=== PATIENT | male | born 1950 | race Caucasian/White ===

== ENCOUNTER 2017-05-11 12:35 | Inpatient (IN) | payer MEDICARE, OTHER ==
[~2017-05-11 12:35] MED LIST: LACTATED RINGERS 1,000 ML IV ONE
[2017-05-11] MEDS ORDERED: PANTOPRAZOLE 40 MG VIAL IVP STA (12:53)
[2017-05-11] MEDS ORDERED: SODIUM CHLORIDE 0.9% 1,000 ML IV ONE (12:53)
[2017-05-11] MEDS ORDERED: PANTOPRAZOLE 40 MG VIAL ONE (12:58)
--- NOTE | 2017-05-11 12:58 | ED Physician Documentation ---
PD HPI ABD PAIN - Stated complaint Stated Complaint: VOMITING BLOOD - Chief complaint Chief Complaint: Abd Pain - History obtained from History obtained from: Patient, Family () - History of Present Illness Timing - onset: Other (66-year-old gentleman with history of esophageal spasm had his typical esophageal spasm last night but starting an hour ago started having coffee-ground emesis and melena not associated with significant abdominal or residual chest pain. He denies shortness of breath. He drinks he says every other day, a few drinks, denies NSAID use, no anticoagulated. No history of ulcer. He does have a history of extensive abdominal surgeries. He does not take any PPI, it is only home medication is lisinopril. He denies weakness or dizziness.) Review of Systems Ten Systems: 10 systems reviewed and negative Constitutional: denies: Fever, Chills, Fatigue Cardiac: denies: Palpitations, Pedal edema, Calf pain Respiratory: denies: Dyspnea, Cough, Hemoptysis, Wheezing GI: reports: Nausea, Vomiting, Hematemesis, Bloody / black stool. denies: Abdominal Pain PD PAST MEDICAL HISTORY - Past Medical History Cardiovascular: Congestive heart failure, Murmur Respiratory: None Neuro: None Endocrine/Autoimmune: None GI: Diverticulitis : None HEENT: None Psych: None Musculoskeletal: Other Derm: None - Past Surgical History Past Surgical History: Yes General: Gastric surgery, Hiatal hernia repair, Colonoscopy - Present Medications Home Medications: Ambulatory Orders Medication Instructions Recorded Confirmed Nitroglycerin [Nitrostat] 0.4 mg SL Q5MIN 04/20/14 05/11/17 Lisinopril/Hydrochlorothiazide 1 tab PO DAILY 05/11/17 05/11/17 [Lisinopril-Hctz 20-25 mg Tab] - Allergies Allergies/Adverse Reactions: Allergies Allergy/AdvReac Type Severity Reaction Status Date / Time No Known Drug Allergies Allergy Verified 05/11/17 12:45 - Social History Does the pt smoke?: No Smoking Status: Never smoker Does the pt drink ETOH?: Yes - Family History Family history: reports: Non contributory - Immunizations Immunizations are current?: No Immunizations: TDAP >10years/unknown - POLST Patient has POLST: No PD ED PE NORMAL - Vitals Vital signs reviewed: Yes - General General: Alert and oriented X 3, Other (coffee-ground emesis at bedside) - HEENT HEENT: PERRL, EOMI - Neck Neck: Supple, no meningeal sign, No bony TTP - Cardiac Cardiac: No murmur, Other (tachycardic) - Respiratory Respiratory: No respiratory distress, Clear bilaterally - Abdomen Abdomen: Normal bowel sounds, Soft, Non tender, Other (well-healed surgical scars) - Back Back: No CVA TTP, No spinal TTP - Derm Derm: Normal color, Warm and dry - Extremities Extremities: No edema, No calf tenderness / cord - Neuro Neuro: Alert and oriented X 3, Normal speech - Psych Psych: Normal mood, Normal affect Results - Vitals Vitals: Vital Signs - 24 hr 05/11/17 05/11/17 12:42 13:07 Temperature 36.9 C Heart Rate 113 H 96 Respiratory 16 18 Rate Blood Pressure 140/89 H 137/84 H O2 Saturation 100 97 Oxygen O2 Source Room air - EKG (time done) 1301 Rate: Rate (enter#) (103) Rhythm: Sinus tachycardia [place]: Normal Intervals: Normal [place] QRS: Normal Ischemia: Normal ST segments Computer interpretation: Agree with computer - Labs Labs: Laboratory Tests 05/11/17 05/11/17 05/11/17 12:45 12:45 12:45 WBC 13.1 H RBC 3.95 L Hgb 12.0 L Hct 35.9 L MCV 90.8 MCH 30.5 MCHC 33.5 RDW 13.6 Plt Count 206 MPV 8.7 Neut # 9.6 H Lymph # 2.3 [place] # 1.0 Eos # 0.1 Baso # 0.0 Absolute Nucleated RBC 0.00 Nucleated RBCs 0.0 PT 13.3 H INR 1.2 APTT 25.9 Sodium 139 Potassium 4.3 Chloride 105 Carbon Dioxide 22 Anion Gap 12.0 BUN 50 H Creatinine 0.8 Estimated GFR (MDRD) 97 Glucose 217 H Calcium 8.3 L Total Bilirubin 1.8 H AST 28 ALT 33 Alkaline Phosphatase 53 Troponin I Total Protein 6.8 Albumin 3.8 Globulin 3.0 Albumin/Globulin Ratio 1.3 Lipase 26 Ethyl Alcohol < 5.0 Blood Type Antibody Screen Crossmatch IS Only 05/11/17 05/11/17 12:45 12:45 WBC RBC Hgb Hct MCV MCH MCHC RDW Plt Count MPV Neut # Lymph # [place] # Eos # Baso # Absolute Nucleated RBC Nucleated RBCs PT INR APTT Sodium Potassium Chloride Carbon Dioxide Anion Gap BUN Creatinine Estimated GFR (MDRD) Glucose Calcium Total Bilirubin AST ALT Alkaline Phosphatase Troponin I < 0.04 Total Protein Albumin Globulin Albumin/Globulin Ratio Lipase Ethyl Alcohol Blood Type O POSITIVE Antibody Screen NEGATIVE Crossmatch IS Only See Detail - Rads (name of study) 2v chest Radiology: EMP read contemporaneously (NAD) PD MEDICAL DECISION MAKING - ED course ED course: This is a 66-year-old gentleman with potentially large upper GI bleed, he was attended to immediately and large-bore IV access was placed, 16 in the right a.c., and 18 in the left a.c. He was administered IV Protonix. This was preceded by esophageal spasms a Boerhaave's is considered, we'll get a chest x- ray to screen. Blood was readied. His H&H is reassuring. I spoke with Dr. Green for consultation, the surgeon at 1330, and Dr. Shaver, the hospitalist for admission at 1335. Departure - Departure Disposition: 66 [facility] DC/Xfer Clinical Impression: Upper GI hemorrhage Condition: Serious
[2017-05-11 13:04] LABS: BASOPHILS % (AUTO) 0.3 %; EOSINOPHILS # (AUTO) 0.1 10^3/uL (0.0-0.7); EOSINOPHILS % (AUTO) 0.5 %; HCT - HEMATOCRIT 35.9 % (42.0-52.0); LYMPHOCYTES # (AUTO) 2.3 10^3/uL (1.5-3.5); LYMPHOCYTES % (AUTO) 17.9 %; MEAN CORPUSCULAR HEMOGLOBIN 30.5 pg (27.0-31.0); MEAN CORPUSCULAR HGB CONC 33.5 g/dL (32.0-36.0); MEAN CORPUSCULAR VOLUME 90.8 fL (80.0-94.0); MEAN PLATELET VOLUME 8.7 fL (7.4-11.4); MONOCYTES % (AUTO) 7.8 %; NEUTROPHILS # (AUTO) 9.6 10^3/uL (1.5-6.6); NEUTROPHILS % (AUTO) 73.5 %; RED BLOOD COUNT 3.95 10^6/uL (4.70-6.10); RED CELL DISTRIBUTION WIDTH 13.6 % (12.0-15.0); UNCORRECTED WHITE BLOOD COUNT 13.1 x10^3/uL; WHITE BLOOD COUNT 13.1 x10^3/uL (4.8-10.8)
[2017-05-11 13:09] LABS: INR 1.2 (0.8-1.2); PT - PROTHROMBIN TIME 13.3 secs (9.9-12.6)
[2017-05-11 13:14] LABS: ALBUMIN/GLOBULIN RATIO 1.3 (1.0-2.2); BILIRUBIN,TOTAL 1.8 mg/dL (0.2-1.0); BUN - BLOOD UREA NITROGEN 50 mg/dL (6-20); CALCIUM 8.3 mg/dL (8.5-10.3); CARBON DIOXIDE - CO2 22 mmol/L (21-32); CHLORIDE 105 mmol/L (101-111); CREATININE 0.8 mg/dL (0.6-1.2); GFR - MDRD 97 (>89); GLUCOSE 217 mg/dL (70-100); LIPASE 26 U/L (22-51); POTASSIUM 4.3 mmol/L (3.5-5.0); SODIUM 139 mmol/L (135-145); TOTAL PROTEIN 6.8 g/dL (6.7-8.2)
[2017-05-11 13:17] LABS: PARTIAL THROMBOPLASTIN TIME 25.9 secs (24.9-33.3)
[2017-05-11] MEDS ORDERED: METOCLOPRAMIDE 10 MG/2 ML VIAL IVP STA (13:23)
[2017-05-11] MEDS ORDERED: METOCLOPRAMIDE 10 MG/2 ML VIAL ONE (13:24)
[2017-05-11] MEDS ORDERED: diphenhydrAMINE INJ 50 MG/ML VIAL IVP STA (13:50)
[2017-05-11] MEDS ORDERED: SODIUM CHLORIDE FLUSH 0.9% 10 ML SYRINGE IVP PRN (13:51)
[2017-05-11] MEDS ORDERED: diphenhydrAMINE INJ 50 MG/ML VIAL ONE (13:52)
--- NOTE | 2017-05-11 14:10 | XRAY Preliminary Report ---
Exam: XR Chest 2 View PA/LAT IMPRESSION: No acute intrathoracic plain film abnormality. [facility] SITE ID: [id number]
--- NOTE | 2017-05-11 14:12 | XRAY Report ---
EXAM: CHEST RADIOGRAPHY EXAM DATE: 05/11/2017 01:47 PM. CLINICAL HISTORY: Hematemesis. COMPARISON: 01/28/2015. TECHNIQUE: 2 views. FINDINGS: Lungs/Pleura: No focal opacities evident. No pleural effusion. No pneumothorax. Normal volumes. Mediastinum: Heart and mediastinal contours are unremarkable. Other: There is right humerus internal fixation hardware. No acute bony abnormalities are seen. IMPRESSION: No acute intrathoracic plain film abnormality. [facility] Referring Provider Line: [phone] SITE ID: [id number]
[2017-05-11] MEDS ORDERED: PANTOPRAZOLE 40 MG VIAL IVP SCH (16:00)
[2017-05-11] MEDS: SODIUM CHLORIDE FLUSH 0.9% 10 ML SYRINGE IVP SCH ×2 (17:12→17:19)
[2017-05-11] MEDS ORDERED: ONDANSETRON 4 MG/2 ML VIAL IVP PRN (17:14)
[2017-05-11] MEDS: SODIUM CHLORIDE 0.9% 1,000 ML IV SCH (17:19)
--- NOTE | 2017-05-11 18:10 | HISTORY & PHYSICAL EXAMINATION ---
DATE OF ADMISSION: 05/11/2017 PRIMARY CARE PHYSICIAN: KATHERIN Grier. CHIEF COMPLAINT: He developed coffee ground emesis and dark black stool last night at the same time. HISTORY OF PRESENT ILLNESS: This is a 66-year-old gentleman who has enjoyed relatively good health until now just with hypertension and history of what he describes as esophageal spasm, who was feeling well until yesterday when he developed a pretty much at the same time black coffee ground emesis. The says it was approximately a cup and also had black dark stool. He comes to the emergency room today without having had an additional coffee-ground emesis or black stool. However, with a hemoglobin and hematocrit of 12 and 36 and a white count of 13.1, platelets 206,000. He does not had any prior history of GI bleed. He does not have a history of bleeding diathesis. He is not on an antiplatelet agents, nor anticoagulants, does not take aspirin, does not take NSAIDs, is also not on any PPI or H2 radha, does not take any herbals. He does drink alcohol, but says this is 1-2 glasses of wine a night. To the ER, he said that it was a glass or 2 of wine every other night. Regarding his esophageal spasm he describes this as food getting stuck part way down, it only happens a couple times a year and when it does happen, it is uncomfortable all the way down. He says that if you gave me some steak right now I could make it happen. He denies that he has ever been diagnosed with eosinophilic esophagitis. He has never had a manometry. He normally has a formed brown bowel movement on pretty much daily basis. With blood loss he denies any shortness of breath, no new chest pain, possibly a little bit diaphoretic and a little bit lightheaded. His INR is 1.2. Platelets 206,000. He had not yet had orthostatics checked before I came to the ER, we did them down there and he had a significant drop from systolic of 131/67 to a systolic of 102 with the development of lightheadedness and he had to sit down, also his heart rate went from 95-115. He has already received 1 liter of normal saline in the emergency room, he was also seen already by Dr. Green of surgery for consideration of EGD and colonoscopy. I have not yet spoken with Dr. Green. He reports that he had a colonoscopy approximately a year ago which he says was completely normal. PAST SURGICAL HISTORY: 1. Ventral hernia repair which has required several surgeries including a colon resection. 2. Right arm fracture 2 to 3 years ago. PAST MEDICAL HISTORY: 1. Hypertension for which he is on lisinopril. 2. History of esophageal spasm. MEDICATIONS AT HOME: 1. Lisinopril thiazide combination is 20:25. 2. He takes p.r.n. nitroglycerin, which I believe is due to his esophageal spasms. ALLERGIES: HE HAS WHAT HE REFERS TO ALLERGIES TO TYLENOL. THIS IS AN ADVERSE DRUG REACTION FORM OF NAUSEA AND VOMITING. SOCIAL HISTORY: He is retired from the [employer], he even spent some time living in [facility] [place] He is . His is with him. He has 2 children who are healthy. As above, he 1-2 drinks of wine per night. Does not smoke any illicit's and smoked years ago. FAMILY HISTORY: Parents well into their 90s. He denies any family history of heart disease, diabetes, cancer or any bleeding diathesis. REVIEW OF SYSTEMS: He denies any unintentional weight gain or weight loss. No fevers, night sweats, lymphadenopathy, no new activity intolerance other than that since yesterday with blood loss. HEAD, EARS, EYES. NOSE AND, THROAT: No vision changes. No trouble chewing or swallowing. No neck stiffness. CARDIOVASCULAR: No chest pain or pressure suggestive of ischemia. No palpitations. No edema. No near syncope only as that described above lightheadedness with the blood loss. RESPIRATORY: No cough, wheezing, or shortness of breath. GASTROINTESTINAL: As per the HPI. GENITOURINARY: Denies urinary frequency, dysuria, or hesitancy. MUSCULOSKELETAL: No complaints of joint pain or swelling. No falls. SKIN: No changes. NEUROLOGIC: No weakness, paresthesias, or discoordination. No confusion or memory loss. PSYCHIATRIC None. ENDOCRINE: No polyuria, polydipsia. No heat or cold intolerance. HEMATOLOGIC: No easy bruising or bleeding, other than the GI bleed described above. PHYSICAL EXAMINATION: GENERAL: In the emergency room, orthostatics are as described above with a drop in his systolic from 131 to 102 in the upright position and increase in his heart rate upon standing gradually from 95 to 115, may have gone further, but I was not present in the room for the rest of it. He is a very pleasant gentleman who appears stated age 66. His is at the bedside. He is lying in bed on the stretcher in no acute distress and participates in the interview. On standing for orthostatic he definitely was started to feel lightheaded and uncomfortable and was sat back down. HEAD, EYES, EARS, NOSE AND THROAT: He has a normal distribution of hair. His sclerae are anicteric. Pupils are approximately 3-4 mm with react to light, and extraocular movements intact. Oral mucosa is moist. He has his own dentition, which is adequate. NECK: Supple. Carotids are +2 with no extra sounds. No bruit. He was set up for a chest exam. He has no spinal tenderness or CVA tenderness. CHEST: Clear to auscultation with unlabored respirations. HEART: Regular S1, S2 with no appreciable extra sounds, periphery is warm and dry. There is no edema. ABDOMEN: Notable for old midline scar and appears to be almost an umbilical hernia from old ventral hernia repair. He has active bowel sounds. His abdomen is nontender. I think I do feel the liver edge on deep inspiration, which is nontender. EXTREMITIES: As above. Strength is grossly equal and no edema. Reflexes and strength were not assessed. DIAGNOSTICS on admission. DIAGNOSTIC STUDIES: White count 13.1, hemoglobin 12.0, hematocrit 35.9, platelets 260,000 and INR is 1.2. Sodium 139, potassium 4.3, chloride 105, bicarbonate 32, BUN 50, creatinine 0.8, glucose 217, Total bilirubin is 1.8. AST and ALT are 28 and 33, respectively. Albumin is 3.8. Alcohol level is 5. EKG was normal sinus tachycardia at approximately 100 with no ischemic changes. Normal axis. echo 2013 EF 70% Grade II diastolic dysfunction In looking for old blood work for comparison there are none in the system. ASSESSMENT AND PLAN: 1. Acute gastrointestinal bleed, suspicious for upper bleed, especially given his elevated BUN and coffee ground emesis. He actually has hemodynamic instability with orthostasis as noted. In ED he received 2 L NS and Medsurg RN indicates patient up in room and no longer orthostatic . He still has good room on his hemoglobin thus far, we will have serial hematocrits every 6 hours. He also will check orthostatics with the continued normal saline volume resuscitation. Will continue that at 100 mL/hour. He has blood that has been typed and screened. I will make sure there is a cross available for 3 at all times in case this becomes a more brisk bleed. He has a large bore IV available , he will be on clears tonight, n.p.o. after midnight for possible EGD in the morning by Dr. Green who has not yet had a formal consultation put in the computer. Patient indictes surgeon already spoke with him. He will continue IV Protonix twice daily. We will hold off on his lisinopril thiazide combination. 2. Hypertension. As above he is orthostatic. With blood loss we are holding off on his antihypertensives. 3. Venous thromboembolism prophylaxis. He will be on SCDs. We will not use any pharmacologic agent at this time. 4. CODE STATUS: HE IS A FULL CODE. 5. Slightly elevated total bilirubin. I will fractionate this, is only mildly elevated with no concomitant elevation in his transaminases. 6. Normocytic anemia, given that it is normocytic, this is likely all reflected to acute GI blood loss. JOB #: [id number] EXT JOB #:[id number] CECELIA
[2017-05-11 19:06] LABS: BASOPHILS % (AUTO) 0.3 %; EOSINOPHILS % (AUTO) 0.1 %; HCT - HEMATOCRIT 27.4 % (42.0-52.0); HGB - HEMOGLOBIN 9.3 g/dL (14.0-18.0); LYMPHOCYTES # (AUTO) 1.2 10^3/uL (1.5-3.5); LYMPHOCYTES % (AUTO) 10.2 %; MEAN CORPUSCULAR HEMOGLOBIN 31.1 pg (27.0-31.0); MEAN CORPUSCULAR HGB CONC 33.8 g/dL (32.0-36.0); MEAN PLATELET VOLUME 8.1 fL (7.4-11.4); MONOCYTES # (AUTO) 0.9 10^3/uL (0.0-1.0); MONOCYTES % (AUTO) 7.2 %; NEUTROPHILS # (AUTO) 9.8 10^3/uL (1.5-6.6); NEUTROPHILS % (AUTO) 82.2 %; RED BLOOD COUNT 2.97 10^6/uL (4.70-6.10); RED CELL DISTRIBUTION WIDTH 13.6 % (12.0-15.0)
[2017-05-11] MEDS ORDERED: PROCHLORPERAZINE 10 MG/2 ML VIAL IVP PRN (19:25)
--- NOTE | 2017-05-11 19:28 | CONSULTATION NOTE ---
Surgery Consult - Admit Date Hospital Admission Date: 05/11/17 - Consult Date Consult Date: 05/11/17 Requesting Provider: ED attending - Home Meds/Allergies Home Medications: Patient History Medication Instructions Recorded Confirmed Nitroglycerin [Nitrostat] 0.4 mg SL Q5MIN 04/20/14 05/11/17 Lisinopril/Hydrochlorothiazide 1 tab PO DAILY 05/11/17 05/11/17 [Lisinopril-Hctz 20-25 mg Tab] Allergies/Adverse Reactions: Allergies Allergy/AdvReac Type Severity Reaction Status Date / Time No Known Drug Allergies Allergy Verified 05/11/17 12:45 - Consultation Note Consultation Note: PD HPI ABD PAIN - Stated complaint Stated Complaint: VOMITING BLOOD - Chief complaint Chief Complaint: Abd Pain - History obtained from History obtained from: Patient, Family () - History of Present Illness 66 yo male with extensive surgical hx including colon resection for complicated diverticulitis with fistula, multiple abdominal wall mesh repairs, CHF, HTN, esophageal spasms. Patient states that has occasional pain in chest ranging from 5 seconds to 5 hours and its due to the esophageal spasms and associated with vomiting. This time he had dry heaves and vomited up blood. Denies any fevers. Has Noted some melana. States had colonoscopy 2 years ago at [facility] and some Benign polyps were found. Has noted dark tarry stools recently Review of Systems Ten Systems: 10 systems reviewed and negative Constitutional: denies: Fever, Chills, Fatigue Cardiac: denies: Palpitations, Pedal edema, Calf pain Respiratory: denies: Dyspnea, Cough, Hemoptysis, Wheezing GI: reports: Nausea, Vomiting, Hematemesis, Bloody / black stool. denies: Abdominal Pain PD PAST MEDICAL HISTORY - Past Medical History Cardiovascular: Congestive heart failure, Murmur Respiratory: None Neuro: None Endocrine/Autoimmune: None GI: Diverticulitis : None HEENT: None Psych: None Musculoskeletal: Other Derm: None - Past Surgical History Past Surgical History: Yes General: Gastric surgery, Hiatal hernia repair, Colonoscopy - Present Medications Home Medications: Ambulatory Orders Medication Instructions Recorded Confirmed Nitroglycerin [Nitrostat] 0.4 mg SL Q5MIN 04/20/14 05/11/17 Lisinopril/Hydrochlorothiazide 1 tab PO DAILY 05/11/17 05/11/17 [Lisinopril-Hctz 20-25 mg Tab] - Allergies Allergies/Adverse Reactions: Allergies Allergy/AdvReac Type Severity Reaction Status Date / Time No Known Drug Allergies Allergy Verified 05/11/17 12:45 - Social History Does the pt smoke?: No Smoking Status: Never smoker Does the pt drink ETOH?: Yes - Family History Family history: reports: Non contributory - Immunizations Immunizations are current?: No Immunizations: TDAP >10years/unknown - POLST Patient has POLST: No PE - Vitals Vital signs reviewed: Yes - General General: Alert and oriented X 3, Other (coffee-ground emesis at bedside) - HEENT HEENT: EOMI - Neck Neck: Supple, no meningeal sign, No bony TTP - Cardiac Cardiac: No murmur, - Respiratory Respiratory: CTA B/L - Abdomen Abdomen: Normal bowel sounds, Soft, Non tender, - Back Back: No CVA TTP, No spinal TTP - Derm Derm: Normal color, Warm and dry - Extremities Extremities: No edema, No calf tenderness / cord - Neuro Neuro: Alert and oriented X 3, Normal speech - Psych Psych: Normal mood, Normal affect Results - Vitals Vitals: Vital Signs - 24 hr 05/11/17 05/11/17 12:42 13:07 Temperature 36.9 C Heart Rate 113 H 96 Respiratory 16 18 Rate Blood Pressure 140/89 H 137/84 H O2 Saturation 100 97 Oxygen O2 Source Room air - EKG (time done) 1301 Rate: Rate (enter#) (103) Rhythm: Sinus tachycardia [place]: Normal Intervals: Normal [place] QRS: Normal Ischemia: Normal ST segments Computer interpretation: Agree with computer - Labs Labs: Laboratory Tests 05/11/17 05/11/17 05/11/17 12:45 12:45 12:45 WBC 13.1 H RBC 3.95 L Hgb 12.0 L Hct 35.9 L MCV 90.8 MCH 30.5 MCHC 33.5 RDW 13.6 Plt Count 206 MPV 8.7 Neut # 9.6 H Lymph # 2.3 [place] # 1.0 Eos # 0.1 Baso # 0.0 Absolute Nucleated RBC 0.00 Nucleated RBCs 0.0 PT 13.3 H INR 1.2 APTT 25.9 Sodium 139 Potassium 4.3 Chloride 105 Carbon Dioxide 22 Anion Gap 12.0 BUN 50 H Creatinine 0.8 Estimated GFR (MDRD) 97 Glucose 217 H Calcium 8.3 L Total Bilirubin 1.8 H AST 28 ALT 33 Alkaline Phosphatase 53 Troponin I Total Protein 6.8 Albumin 3.8 Globulin 3.0 Albumin/Globulin Ratio 1.3 Lipase 26 Ethyl Alcohol < 5.0 Blood Type Antibody Screen Crossmatch IS Only 05/11/17 05/11/17 12:45 12:45 WBC RBC Hgb Hct MCV MCH MCHC RDW Plt Count MPV Neut # Lymph # [place] # Eos # Baso # Absolute Nucleated RBC Nucleated RBCs PT INR APTT Sodium Potassium Chloride Carbon Dioxide Anion Gap BUN Creatinine Estimated GFR (MDRD) Glucose Calcium Total Bilirubin AST ALT Alkaline Phosphatase Troponin I < 0.04 Total Protein Albumin Globulin Albumin/Globulin Ratio Lipase Ethyl Alcohol Blood Type O POSITIVE Antibody Screen NEGATIVE Crossmatch IS Only See Detail 66 yo male with multiple medical problems now with presumed upper GI bleed. Serial CBC's EGD in AM Transfuse prn Primary medical team to manage
[2017-05-11] MEDS ORDERED: EPINEPHrine ABBOJECT 1 MG/10 ML SYRINGE ONE (20:00)
[2017-05-11] MEDS ORDERED: SODIUM CHLORIDE 0.9% 250 ML IV SCH (20:05)
[2017-05-11] MEDS ORDERED: LACTATED RINGERS 1,000 ML IV ONE ×5 (20:57→22:30)
[2017-05-11] MEDS ORDERED: SODIUM CHLORIDE 0.9% 500 ML IV ONE (21:05)
[2017-05-11] MEDS ORDERED: EPINEPHrine ABBOJECT 1 MG/10 ML SYRINGE IVP ONE (22:14)
[2017-05-11 22:23] LABS: HCT - HEMATOCRIT 24.3 % (42.0-52.0); HGB - HEMOGLOBIN 7.9 g/dL (14.0-18.0); MEAN CORPUSCULAR HEMOGLOBIN 29.8 pg (27.0-31.0); MEAN CORPUSCULAR HGB CONC 32.4 g/dL (32.0-36.0); MEAN CORPUSCULAR VOLUME 91.9 fL (80.0-94.0); RED BLOOD COUNT 2.64 10^6/uL (4.70-6.10); RED CELL DISTRIBUTION WIDTH 14.6 % (12.0-15.0)
[2017-05-11] MEDS ORDERED: EPINEPHrine 1 MG/ML AMP IVP ONE (23:15)
[2017-05-11 23:16] LABS: HCT - HEMATOCRIT 30.9 % (42.0-52.0); MEAN CORPUSCULAR HEMOGLOBIN 29.2 pg (27.0-31.0); MEAN CORPUSCULAR HGB CONC 32.5 g/dL (32.0-36.0); MEAN CORPUSCULAR VOLUME 90.1 fL (80.0-94.0); MEAN PLATELET VOLUME 8.8 fL (7.4-11.4); RED BLOOD COUNT 3.43 10^6/uL (4.70-6.10); RED CELL DISTRIBUTION WIDTH 14.7 % (12.0-15.0); WHITE BLOOD COUNT 21.8 x10^3/uL (4.8-10.8)
[2017-05-11] MEDS ORDERED: SUCCINYLCHOLINE 200 MG/10 ML VIAL IVP ONE (23:37)
[2017-05-11] MEDS ORDERED: fentaNYL 100 MCG/2 ML VIAL IVP ONE (23:37)
[2017-05-11] MEDS ORDERED: MIDAZOLAM 2 MG/2 ML VIAL IVP ONE (23:37)
[2017-05-11] MEDS ORDERED: LIDOCAINE-MPF 2% 5 ML VIAL IM ONE (23:37)
[2017-05-11] MEDS ORDERED: PROPOFOL 200 MG/20 ML VIAL IVP ONE (23:37)
[2017-05-11] MEDS ORDERED: DEXAMETHASONE 4 MG/ML VIAL IVP ONE (23:37)
[2017-05-11] MEDS ORDERED: PHENYLEPHRINE 50 MG/5 ML VIAL IV ONE (23:37)
[2017-05-11] MEDS ORDERED: ONDANSETRON 4 MG/2 ML VIAL IVP ONE (23:37)
[2017-05-12] MEDS ORDERED: PROPOFOL 1000 MG/100 ML 100 ML IV ONE (00:47)
[2017-05-12] MEDS ORDERED: PANTOPRAZOLE 80 MG in SODIUM CHLORIDE 0.9% 100ML 100 ML IV SCH (01:00)
[2017-05-12] MEDS ORDERED: PROPOFOL 1000 MG/100 ML 100 ML IV SCH (01:00)
[2017-05-12] MEDS ORDERED: LACTATED RINGERS 1,000 ML IV ONE (01:08)
[2017-05-12 01:18] VITALS: BP 108/61
[2017-05-12 01:27] LABS: HCT - HEMATOCRIT 38.8 % (42.0-52.0); HGB - HEMOGLOBIN 12.8 g/dL (14.0-18.0)
[2017-05-12] MEDS: SODIUM CHLORIDE 0.9% 1,000 ML IV SCH (01:27)
[2017-05-12 02:38] LABS: BASOPHILS # (AUTO) 0.1 10^3/uL (0.0-0.1); BASOPHILS % (AUTO) 0.5 %; EOSINOPHILS % (AUTO) 0.1 %; HCT - HEMATOCRIT 33.1 % (42.0-52.0); HGB - HEMOGLOBIN 11.2 g/dL (14.0-18.0); LYMPHOCYTES # (AUTO) 1.1 10^3/uL (1.5-3.5); LYMPHOCYTES % (AUTO) 8.1 %; MEAN CORPUSCULAR HEMOGLOBIN 29.7 pg (27.0-31.0); MEAN CORPUSCULAR HGB CONC 33.8 g/dL (32.0-36.0); MEAN CORPUSCULAR VOLUME 87.9 fL (80.0-94.0); MEAN PLATELET VOLUME 8.5 fL (7.4-11.4); MONOCYTES # (AUTO) 0.8 10^3/uL (0.0-1.0); NEUTROPHILS # (AUTO) 11.9 10^3/uL (1.5-6.6); NEUTROPHILS % (AUTO) 85.3 %; NUCLEATED RED BLOOD CELLS AUTO 0.1 /100WBC; RED BLOOD COUNT 3.76 10^6/uL (4.70-6.10); RED CELL DISTRIBUTION WIDTH 15.2 % (12.0-15.0)
[2017-05-12] MEDS ORDERED: PANTOPRAZOLE 40 MG VIAL IVP SCH (07:00)
[2017-05-12] MEDS ORDERED: POLYETHYLENE GLYCOL 3350 17 GM PACKET PO SCH (09:00)
[2017-05-12] MEDS ORDERED: CHLORHEXIDINE GLUCONATE 15 ML UDC PO SCH (09:00)
--- NOTE | 2017-05-14 08:38 | DISCHARGE SUMMARY ---
DATE OF ADMISSION: 05/11/2017 DATE OF DISCHARGE: 05/12/2017 DISCHARGE DIAGNOSIS: 1. Massive gastrointestinal bleeding, related to bleeding within a hiatal hernia with diffuse oozing and 1 small ulcer. 2. Acute blood loss anemia, status post 5 units packed red blood cells transfusion and 4 units of FFP . 3. History of esophageal spasm. 4. History of hypertension. 5. History of moderate alcohol use. HOSPITAL COURSE: For full details on admitting data, please refer to yesterday's dictated H and P. Br iefly, this 66-year-old man was feeling well until day before yesterday when he developed abdominal d iscomfort and coffee ground emesis followed by a very dark stool. He presented to the emergency room for investigation. He was found to have hemoglobin of 12 with hematocrit of 36 at that time and was a dmitted to observe more closely. Initial H and H were 12 and 36 and approximately 6 hours later, H an d H were 9 and 27. He then had another episode of emesis which appeared to be bloody. Our surgeon, Dr Juan Pablo Green, was contacted, and took him to the OR to do an upper endoscopy. He found a great d eal of blood, and noted diffuse oozing of blood within the supradiaphragmatic part of the patient's h ernia near the GE junction. He apparently attempted several epinephrine injections as well as cauteri zation and I believe placed a couple of clips as well. It took him almost 3 hours to try to get the b leeding stopped. Currently, it does appear that the bleeding has stopped. However, after his first 2 units of transfusion, his H and H did come back at 7.9 and 24.3. During the procedure, anesthesia als o had some trouble with him dropping his blood pressure into the 70s. He was given vasopressors to he lp keep his blood pressure up as well as loss of fluids. He got 3 more units of packed red blood cell s, in addition to 4 units of FFP. Currently, he has also been started on a Protonix drip. Immediately postop blood pressure had dropped to 89/50, however, once they started to wake him up from anesthesi a, blood pressure went up to be quite high, so he was then started on a propofol drip. He remains int ubated and is on a ventilator with assist control and a tidal volume of 550, and is breathing on his own. Surgery feels that this patient needs to be moved to a larger center, since he has a significant risk of rebleeding. He would like him to have access to both Gastroenterology and surgery, if the bl eeding should recur and it cannot be controlled. Other past history is fairly minor, with a ventral hernia repair requiring several surgeries as well as a partial colon resection and then the esophageal spasm requiring occasional nitroglycerin. Our childers rgeon here thinks that the patient had frequent vomiting and retching today and yesterday, which may have aggravated the bleeding at the site of his hiatal hernia. CURRENT MEDICATIONS: At home include. 1. Lisinopril/HCTZ 25/20 one every day. 2. Sublingual nitroglycerin p.r.n. MEDICATIONS: In the hospital include. 1. Zofran 4 mg IV q.4h. p.r.n. 2. Protonix drip at 10 mL per hour. 3. Compazine p.r.n. 4. Propofol drip titrated as needed. 5. Normal saline IV fluids. ALLERGIES: THE PATIENT BELIEVES HE HAD A BAD REACTION TO TYLENOL IN THE PAST, WITH NAUSEA AND VOMITIN G. SOCIAL HISTORY: Notable for being retired from the [employer] and having spent some time in [employer] de. He lives with his . He does reportedly drink 1-2 glasses of wine per night. PHYSICAL EXAMINATION: GENERAL: Today, the patient is currently sedated and intubated. NECK: Showed no neck stiffness earlier today. There is no obvious JVD or lymphadenopathy. CARDIOVASCULAR: Regular rate and rhythm. LUNGS: Clear to auscultation. ABDOMEN: Has an old midline scar, tenderness is not able to be assessed at this time. No masses are o bvious. EXTREMITIES: No edema. NEUROLOGIC: The patient is currently intubated and sedated. ASSESSMENT AND PLAN: 1. Acute gastrointestinal bleed with bleeding within the hiatal hernia and the surgeon notes there wa s a bleeding erosion found in the gastric body at the diaphragmatic hiatus as well as one medium-size d nonbleeding, clean based and irregular-shaped ulcer in the cardia. Because he has required so much blood replacement for his procedure and regarding concerns of increased risk for rebleeding, he will be transferred to a larger center where he will have access to Gastroenterology and backup surgery if needed. He remains intubated to protect his airway, and will be transported intubated. He can be ext ubated once he reaches the ICU at [facility] in [place], depending on the auto design detailer pre ference at that time. 2. Hypertension. Lisinopril/HCTZ is on hold. 3. The patient does have a history of mild to moderate alcohol use. It is possible that he drinks mor e than he has stated, so should be watched for signs of alcohol withdrawal as well. 4. For deep vein thrombosis prophylaxis, he be placed on sequential compression devices. No pharmacol ogic agents were used. 5. CODE STATUS: HE IS A FULL CODE. 6. He did have a slightly elevated bilirubin with normal transaminases. 7. Acute blood loss anemia. He is status post transfusion of 5 units packed red blood cells, as well as 4 units of FFP. Last CBC showed white blood cell count of 21,000, hemoglobin 12.8, hematocrit 38, and platelets of 145,000. DIAGNOSTICS: Last set of vital signs shows temperature of 36.8, heart rate 78, blood pressure 108/61, respiratory rate 19 on the ventilator, O2 Saturation 100%. CBC is as noted above. PT on admission wa s 13, INR 1.2, PTT 25. Chemistry panel on admission was notable for a bun of 50, creatinine of 0.8, g lucose of 217, calcium 8.3, total bilirubin 1.8. Transaminases are within normal limits. Troponin was normal. Lipase was normal as well. Alcohol was less than 5.0. Surgical consultation was obtained with Dr. Bob Green and upper endoscopy report will be includ ed with his transfer papers. Chest x-ray in the emergency department showed no acute abnormalities, r ight humerus internal fixation hardware was noted. EKG was also performed and showed sinus tachycardi a at a rate of 103 with mildly prolonged QT interval of 538. Otherwise normal axis and intervals, wit hout signs of ischemia. DISPOSITION: The patient will be transferred to the care of Dr. Phillips, the auto design detailer at [facility] in [place], [place]. His phone number is [phone]. I also discussed the case with Dr. Dannie MD of Gastroenterology, at [facility], as well. Isaac's visit took approximately 1 hour to review the patient's records, review his case with Surge ry and Gastroenterology and the auto design detailer at [facility], and then to do the summary and write ord ers, as well as manage the ventilator pending transfer. JOB #: [id number] EXT JOB #:[id number]
== END 2017-05-12 03:04 | disposition short-term general hospital (02) | DRG 378 ==
LOC: ED 12:35 → MS 13:51 → ICU 05-12 00:45
PROVIDERS: ADMIT Nurse Practitioner; ATTEND Internal Medicine
PROC: 0W3P8ZZ Control Bleeding in Gastrointestinal Tract, Via Natural or Artificial Opening Endoscopic (ICD-10-PCS; principal; 2017-05-11 20:25)
DX: K92.0 Hematemesis (principal); I50.9 Heart failure, unspecified; Z79.899 Other long term (current) drug therapy; K25.4 Chronic or unspecified gastric ulcer with hemorrhage; D62 Acute posthemorrhagic anemia; K44.9 Diaphragmatic hernia without obstruction or gangrene; I10 Essential (primary) hypertension; K21.9 Gastro-esophageal reflux disease without esophagitis; K22.4 Dyskinesia of esophagus; Z90.49 Acquired absence of other specified parts of digestive tract; Z87.898 Personal history of other specified conditions; Z87.891 Personal history of nicotine dependence
CPT/HCPCS: 36415; 71020; 80053; 80320; 82248; 82803; 83690; 84484; 85014; 85018; 85025; 85610; 85730; 86850; 86900; 86901; 86920; 88305; 93005; 94002; 96361; 96374; 96375; 99284; 99285

== ENCOUNTER 2017-05-25 12:48 | Outpatient (CLI) | payer MEDICARE, OTHER ==
[2017-05-25 13:33] LABS: BASOPHILS # (AUTO) 0.1 10^3/uL (0.0-0.1); BASOPHILS % (AUTO) 1.2 %; EOSINOPHILS # (AUTO) 0.2 10^3/uL (0.0-0.7); HCT - HEMATOCRIT 36.4 % (42.0-52.0); HGB - HEMOGLOBIN 12.4 g/dL (14.0-18.0); MEAN CORPUSCULAR HGB CONC 34.1 g/dL (32.0-36.0); MEAN PLATELET VOLUME 7.1 fL (7.4-11.4); MONOCYTES # (AUTO) 0.7 10^3/uL (0.0-1.0); NEUTROPHILS # (AUTO) 6.1 10^3/uL (1.5-6.6); NEUTROPHILS % (AUTO) 66.8 %; RED BLOOD COUNT 4.28 10^6/uL (4.70-6.10); RED CELL DISTRIBUTION WIDTH 14.7 % (12.0-15.0); UNCORRECTED WHITE BLOOD COUNT 9.1 x10^3/uL; WHITE BLOOD COUNT 9.1 x10^3/uL (4.8-10.8)
[2017-05-25 13:43] LABS: CALCIUM 9.4 mg/dL (8.5-10.3)
== END 2017-05-25 12:49 | disposition home or self-care (01) ==
LOC: LAB 12:48
PROVIDERS: ATTEND Internal Medicine Gastroenterology
DX: D62 Acute posthemorrhagic anemia (principal)
CPT/HCPCS: 36415; 80048; 85025

== ENCOUNTER 2018-06-04 11:00 | Outpatient (CLI) | payer MEDICARE, OTHER ==
[2018-06-04 11:32] LABS: BASOPHILS # (AUTO) 0.1 10^3/uL (0.0-0.1); BASOPHILS % (AUTO) 0.7 %; EOSINOPHILS # (AUTO) 0.3 10^3/uL (0.0-0.7); EOSINOPHILS % (AUTO) 3.6 %; HGB - HEMOGLOBIN 15.6 g/dL (14.0-18.0); LYMPHOCYTES # (AUTO) 2.2 10^3/uL (1.5-3.5); MEAN CORPUSCULAR HEMOGLOBIN 31.1 pg (27.0-31.0); MEAN CORPUSCULAR VOLUME 91.6 fL (80.0-94.0); MEAN PLATELET VOLUME 8.2 fL (7.4-11.4); MONOCYTES # (AUTO) 0.7 10^3/uL (0.0-1.0); MONOCYTES % (AUTO) 8.9 %; NEUTROPHILS # (AUTO) 4.6 10^3/uL (1.5-6.6); NEUTROPHILS % (AUTO) 58.8 %; PLT - PLATELET COUNT 186 10^3/uL (130-450); RED BLOOD COUNT 5.01 10^6/uL (4.70-6.10); RED CELL DISTRIBUTION WIDTH 13.4 % (12.0-15.0); WHITE BLOOD COUNT 7.8 x10^3/uL (4.8-10.8)
[2018-06-04 11:50] LABS: ALBUMIN 4.1 g/dL (3.2-5.5); ALBUMIN/GLOBULIN RATIO 1.1 (1.0-2.2); ALKALINE PHOSPHATASE 67 IU/L (42-121); ALT ALANINE AMINOTRANSFERASE 57 IU/L (10-60); AST ASPARTATE AMINOTRANSFERASE 68 IU/L (10-42); BILIRUBIN,TOTAL 1.6 mg/dL (0.2-1.0); BUN - BLOOD UREA NITROGEN 14 mg/dL (6-20); CALCIUM 8.9 mg/dL (8.5-10.3); CARBON DIOXIDE - CO2 26 mmol/L (21-32); CHLORIDE 100 mmol/L (101-111); CHOL/HDL RATIO 3.8 (<5.0); CHOLESTEROL 182 mg/dL; CREATININE 0.7 mg/dL (0.6-1.2); GFR - MDRD 112 (>89); GLUCOSE 103 mg/dL (70-100); HDL CHOLESTEROL 48 mg/dL; LDL CHOLESTEROL,CALCULATED 69 mg/dL; LDL/HDL RATIO 1.4 (<3.6); SODIUM 135 mmol/L (135-145); TOTAL PROTEIN 7.9 g/dL (6.7-8.2); VLDL CHOLESTEROL 65 mg/dL
== END 2018-06-04 11:01 | disposition home or self-care (01) ==
LOC: LAB 11:00
PROVIDERS: ATTEND Nurse Practitioner Gerontology
DX: I10 Essential (primary) hypertension (principal); K76.0 Fatty (change of) liver, not elsewhere classified
CPT/HCPCS: 36415; 80053; 80061; 83721; 85025

== ENCOUNTER 2019-02-14 14:50 | Outpatient (CLI) | payer MEDICARE, OTHER ==
--- NOTE | 2019-02-14 15:49 | CT Report ---
Reason: POSSIBLE MESH MIGRATION, ABDOMINAL HERNIA W/O OSTR Procedure Date: 02/14/2019 Accession Number: [id number] / [id number] Procedure: CT - Abdomen/Pelvis WO CPT Code: FULL RESULT: EXAM: CT ABDOMEN AND PELVIS EXAM DATE: 02/14/2019 03:10 PM. CLINICAL HISTORY: Possible mesh migration, abdominal hernia. COMPARISONS: ABDOMEN/PELVIS W/ 05/01/2014 2:23 PM. TECHNIQUE: Routine helical CT imaging was performed through the abdomen and pelvis. IV contrast: No. Enteric contrast: No. Reconstructions: Coronal and sagittal. In accordance with CT protocol optimization, one or more of the following dose reduction techniques were utilized for this exam: automated exposure control, adjustment of mA and/or KV based on patient size, or use of iterative reconstructive technique. FINDINGS: Lung Bases: Unremarkable. Liver: A focal calcification in the noncontrast liver is again seen. Gallbladder/Bile Ducts: Cholelithiasis is noted. Spleen: Normal. Pancreas: Normal. Adrenal Glands: Normal. Kidneys: Normal. No masses or hydronephrosis. Peritoneal Cavity/Bowel: Position of the ventral hernia repair mesh is unchanged compared to 2013. Visually, the abdominal wall diastasis extends inferiorly beyond the margin of the mesh. The patient is status post partial colectomy. No free fluid, free air or adenopathy. No masses or acute inflammatory process. The appendix is well visualized and normal. Pelvic Organs: Normal. The bladder and visualized pelvic organs are within normal limits. Vasculature: Abdominal atherosclerosis. Bones: No significant abnormality. Other: None. IMPRESSION: Stable position of mesh with question of abdominal wall diastasis inferior to the previous repair. RADIA
== END 2019-02-14 14:51 | disposition home or self-care (01) ==
LOC: DI 14:50
PROVIDERS: ATTEND Surgery
DX: K46.9 Unspecified abdominal hernia without obstruction or gangrene (principal)
CPT/HCPCS: 74176

== ENCOUNTER 2019-07-06 08:20 | Day surgery (SDC) | payer MEDICARE, OTHER ==
[2019-07-06] MEDS ORDERED: LACTATED RINGERS 1,000 ML IV ONE (08:57)
[2019-07-06] MEDS ORDERED: fentaNYL 250 MCG/5 ML VIAL IVP ONE (09:48)
[2019-07-06] MEDS ORDERED: MIDAZOLAM 2 MG/2 ML VIAL IVP ONE (09:48)
[2019-07-06 10:34] VITALS: BP 126/87
== END 2019-07-06 08:21 | disposition home or self-care (01) ==
LOC: SDS 08:20
PROVIDERS: ATTEND Surgery
PROC: 0DBK8ZZ Excision of Ascending Colon, Via Natural or Artificial Opening Endoscopic (ICD-10-PCS; principal; 2019-07-06 10:00)
DX: Z12.11 Encounter for screening for malignant neoplasm of colon (principal); D12.2 Benign neoplasm of ascending colon; K57.30 Diverticulosis of large intestine without perforation or abscess without bleeding; K64.8 Other hemorrhoids; I10 Essential (primary) hypertension; Z87.891 Personal history of nicotine dependence; Z90.49 Acquired absence of other specified parts of digestive tract; Z79.899 Other long term (current) drug therapy
CPT/HCPCS: 45380; J3010; J7120

== ENCOUNTER 2020-07-06 16:04 | Outpatient (CLI) | payer MEDICARE, OTHER ==
[2020-07-06 16:23] LABS: BASOPHILS # (AUTO) 0.1 10^3/uL (0.0-0.1); BASOPHILS % (AUTO) 0.9 %; EOSINOPHILS # (AUTO) 0.3 10^3/uL (0.0-0.7); EOSINOPHILS % (AUTO) 2.8 %; HGB - HEMOGLOBIN 15.8 g/dL (14.0-18.0); LYMPHOCYTES # (AUTO) 2.2 10^3/uL (1.5-3.5); LYMPHOCYTES % (AUTO) 23.1 %; MEAN CORPUSCULAR HEMOGLOBIN 31.2 pg (27.0-31.0); MEAN CORPUSCULAR HGB CONC 33.8 g/dL (32.0-36.0); MEAN CORPUSCULAR VOLUME 92.5 fL (80.0-94.0); MEAN PLATELET VOLUME 9.8 fL (7.4-11.4); MONOCYTES # (AUTO) 0.8 10^3/uL (0.0-1.0); MONOCYTES % (AUTO) 8.4 %; NEUTROPHILS % (AUTO) 64.1 %; PLT - PLATELET COUNT 184 10^3/uL (130-450); RED BLOOD COUNT 5.06 10^6/uL (4.70-6.10); RED CELL DISTRIBUTION WIDTH 12.9 % (12.0-15.0); WHITE BLOOD COUNT 9.4 x10^3/uL (4.8-10.8)
[2020-07-06 16:35] LABS: ALBUMIN 4.3 g/dL (3.2-5.5); ALBUMIN/GLOBULIN RATIO 1.3 (1.0-2.2); BILIRUBIN,TOTAL 0.9 mg/dL (0.2-1.0); CALCIUM 9.7 mg/dL (8.5-10.3); CREATININE 0.8 mg/dL (0.6-1.2); TOTAL PROTEIN 7.5 g/dL (6.7-8.2); URIC ACID 9.6 mg/dL (2.6-7.2)
[2020-07-06 17:52] LABS: CREATININE,URINE 521.5 mg/dL; MICROALBUM/CREATININE RATIO,UR 3.3 ug/mg (<30.0); MICROALBUMIN,URINE 1.7 mg/dL (0-300.0)
== END 2020-07-06 16:05 | disposition home or self-care (01) ==
LOC: LAB 16:04
PROVIDERS: ATTEND Family Medicine
DX: I10 Essential (primary) hypertension (principal); M10.9 Gout, unspecified
CPT/HCPCS: 36415; 80053; 82043; 82570; 84550; 85025

== ENCOUNTER 2020-07-10 11:22 | Outpatient (CLI) | payer MEDICARE, OTHER ==
[2020-07-10 11:56] LABS: CHOL/HDL RATIO 4.7 (<5.0); CHOLESTEROL 202 mg/dL; HDL CHOLESTEROL 43 mg/dL; LDL CHOLESTEROL,CALCULATED 111 mg/dL; LDL/HDL RATIO 2.6 (<3.6); VLDL CHOLESTEROL 48 mg/dL
== END 2020-07-10 11:23 | disposition home or self-care (01) ==
LOC: LAB 11:22
PROVIDERS: ATTEND Family Medicine
DX: I10 Essential (primary) hypertension (principal); M10.9 Gout, unspecified
CPT/HCPCS: 36415; 80061; 83721

== ENCOUNTER 2020-08-05 09:49 | Outpatient (CLI) | payer MEDICARE, OTHER ==
--- NOTE | 2020-08-05 11:49 | Ultrasound Report ---
PROCEDURE: Aorta Screening INDICATIONS: SMOKING,HERNIA REPAIR TECHNIQUE: Real time scanning was performed of the aorta and iliac arteries, with image documentatio n. COMPARISON: CT abdomen pelvis 02/14/2019 FINDINGS: Aorta: Proximal aortic diameter measures 2.7 cm. Mid-aorta measures 1.9 cm. Distal aortic diameter is 1.6 cm. Iliac arteries: Right common iliac artery measures 1.4 cm. Left common iliac artery measures 1.4 cm . IMPRESSION: No evidence of abdominal aortic or iliac arterial aneurysm. Reviewed by: Tomasa Jama MD on 08/05/2020 11:48 AM PDT Approved by: Tomasa Jama MD on 08/05/2020 11:48 AM PDT Station ID: [id number]
== END 2020-08-05 09:50 | disposition home or self-care (01) ==
LOC: DI 09:49
PROVIDERS: ATTEND Family Medicine
DX: Z13.6 Encounter for screening for cardiovascular disorders (principal)
CPT/HCPCS: 76706

== ENCOUNTER 2020-12-12 14:18 | Outpatient (CLI) | payer MEDICARE, OTHER | END 2020-12-12 14:19 | disposition home or self-care (01) | LOC: COV 14:18 | PROVIDERS: ATTEND Ophthalmology | DX: Z01.812 Encounter for preprocedural laboratory examination (principal); H40.1112 Primary open-angle glaucoma, right eye, moderate stage; Z20.822 Contact with and (suspected) exposure to COVID-19 ==